=== PATIENT | female | born 1995 | race Caucasian/White ===

== ENCOUNTER 2023-05-14 11:54 | Emergency (ER) | payer OTHER ==
[~2023-05-14] VITALS: Ht 167.6 cm; Wt 113.4 kg
[2023-05-14] MEDS ORDERED: SERT50 (12:12)
[2023-05-14] MEDS ORDERED: HYDACE10B PO (13:39)
[2023-05-14 14:21] VITALS: BP 155/105
== END 2023-05-14 15:35 | disposition home or self-care (01) ==
LOC: ER 11:54
DX: S52.571A Other intraarticular fracture of lower end of right radius, initial encounter for closed fracture (principal); V48.5XXA Car driver injured in noncollision transport accident in traffic accident, initial encounter; Y92.410 Unspecified street and highway as the place of occurrence of the external cause
CPT/HCPCS: 25605; 73090; 73100; 73110; 99152; 99284-25; A9270; J2704; J7030